=== PATIENT | female | born 1990 | race Caucasian/White ===

== ENCOUNTER 2018-03-10 05:12 | Emergency (ER) | payer OTHER | END 2018-03-10 06:00 | disposition home or self-care (01) | LOC: MADERS 05:12 | DX: G40.909 Epilepsy, unspecified, not intractable, without status epilepticus (principal); F17.210 Nicotine dependence, cigarettes, uncomplicated | CPT/HCPCS: 99283 ==

== ENCOUNTER 2018-03-11 15:15 | Emergency (ER) | payer SELFPAY | END 2018-03-11 15:50 | disposition left against medical advice (07) | LOC: MADERS 15:15 | DX: R56.9 Unspecified convulsions (principal); F17.210 Nicotine dependence, cigarettes, uncomplicated | CPT/HCPCS: 99284 ==

== ENCOUNTER 2018-08-16 13:41 | Emergency (ER) | payer MEDICAID ==
--- NOTE | 2018-08-16 14:51 | RAD ---
RIGHT WRIST FOUR VIEWS: Comparison: 02-12-03 History: Fall, trauma, radial pain. FINDINGS: Intercarpal and radiocarpal joint spaces are preserved. No fracture. No cortical irregularity. No periosteal reaction. IMPRESSION: No fracture. POS: [facility]
== END 2018-08-16 14:45 | disposition home or self-care (01) ==
LOC: MADERS 13:41
DX: S63.501A Unspecified sprain of right wrist, initial encounter (principal); F41.9 Anxiety disorder, unspecified; F39 Unspecified mood [affective] disorder; F17.210 Nicotine dependence, cigarettes, uncomplicated; Z79.899 Other long term (current) drug therapy; X50.1XXA Overexertion from prolonged static or awkward postures, initial encounter

== ENCOUNTER 2018-10-18 09:49 | Emergency (ER) | payer OTHER | END 2018-10-18 10:34 | disposition home or self-care (01) | LOC: MADERS 09:49 | DX: M65.80 Other synovitis and tenosynovitis, unspecified site (principal); M65.812 Other synovitis and tenosynovitis, left shoulder; M65.811 Other synovitis and tenosynovitis, right shoulder; F41.9 Anxiety disorder, unspecified; F17.210 Nicotine dependence, cigarettes, uncomplicated; F34.9 Persistent mood [affective] disorder, unspecified; Z79.899 Other long term (current) drug therapy | CPT/HCPCS: 99283 ==

== ENCOUNTER 2020-02-20 18:46 | Emergency (ER) | payer MEDICAID, OTHER, SELFPAY ==
[2020-02-20 19:13] LABS: #Basophils 0.1 thou/uL (0.0-0.2); #Eosinphils 0.1 thou/uL (0.0-0.7); #Lymphocytes 2.1 thou/uL (1.20-3.40); #Monocytes 0.4 thou/uL (0.11-0.59); #Neutrophils 3.4 thou/uL (1.40-6.50); %Eosinophils 2.4 % (0.0-10.0); %Lymphocytes 33.8 % (21.0-51.0); %Monocytes 6.5 % (0.0-10.0); %Neutrophils 56.3 % (42.0-75.0); Hemoglobin 13.1 g/dL (12.0-16.0); Mean Corpuscular HGB CONC 32.9 g/dL (32.0-36.0); Mean Corpuscular Hemoglobin 29.7 pg (27.0-31.0); Mean Corpuscular Volume 90.3 fL (78.0-98.0); Mean Platelet Volume 6.6 fL (7.4-10.4); Platelet Count 256 thou/uL (130-400); RBC Distribution Width 12.7 % (11.5-14.5); Red Blood Cell (RBC) Count 4.43 mill/uL (4.20-5.40)
[2020-02-20 19:20] LABS: Bilirubin Negative (Negative); Blood, Urine Negative (Negative); Glucose, Urine (Dipstick) Negative (Negative); Leukocyte Trace (Negative); Nitrite Negative (Negative); Protein, Urine (Dipstick) Negative (Neg-Trace); Urobilinogen 0.2 mg/dL (Less than 2)
[2020-02-20 19:22] LABS: Bacteria/HPF 1+ HPF (None Seen); Clarity Hazy (Clear); RBC/HPF 0-3 HPF (0-3)
== END 2020-02-20 21:04 | disposition short-term general hospital (02) ==
LOC: MADERS 18:46
DX: O23.41 Unspecified infection of urinary tract in pregnancy, first trimester (principal); F41.9 Anxiety disorder, unspecified; O99.331 Smoking (tobacco) complicating pregnancy, first trimester; O99.341 Other mental disorders complicating pregnancy, first trimester; F53.1 Puerperal psychosis; F17.210 Nicotine dependence, cigarettes, uncomplicated
CPT/HCPCS: 81003; 81015; 84702; 85025; 87086; 99284